=== PATIENT | male | born 1965 | race Caucasian/White ===

== ENCOUNTER → 2019-04-28 | Outpatient (CLI) | payer OTHER ==
--- NOTE | 2019-04-29 06:52 | MR ---
MRI CERVICAL SPINE: CLINICAL HISTORY: Neck shoulder and arm pain. TECHNIQUE: Multiplanar, multisequence imaging of the cervical spine is performed without IV contrast. IV contrast not given due to patient being unable to complete exam due to movement related to pain. COMPARISON: None. FINDINGS: Exam is essentially nondiagnostic as patient could not complete entire protocol due to beverly on related to pain. Craniocervical junction is maintained. There is slight grade 1 retrolisthesis of C6 on C7. There is mild to moderate disc space narrowing C5-C6 and C6-C7 levels. IMPRESSION: As above.
== END | disposition home or self-care (01) ==
LOC: RADMRIMAIN 16:17
PROVIDERS: ATTEND Family Medicine
DX: M99.71 Connective tissue and disc stenosis of intervertebral foramina of cervical region (principal); M43.12 Spondylolisthesis, cervical region
CPT/HCPCS: 72141